=== PATIENT | female | born 1945 ===

== ENCOUNTER 2020-04-30 12:07 | Outpatient (CLI) | payer MEDICARE ==
--- NOTE | 2020-04-30 13:21 | ULT ---
Exam: Bilateral renal ultrasound HISTORY: Stage IV kidney disease. Renal cyst. COMPARISON: None FINDINGS: Right kidney: There is renal cortical thinning. Limited evaluation for solid masses. Multiple anechoi c foci involving the right renal cortex. Largest lesion measures 1.6 x 1.5 x 1.5 cm and is located along the lower pole. Renal cyst is favored. No hydronephrosis. Right kidney measurements: 10.3 x 3.9 x 4.8 cm. Left kidney: There is renal cortical thinning. Limited evaluation for solid masses. Multiple anechoic foci in the upper pole the left kidney, compatible with cysts. Largest cyst measures 3.5 x 3.8 x 3.6 cm. No hydronephrosis Left kidney measurements 11.5 x 5.4 x 5.5 cm. Urinary bladder: Normal mucosa. IMPRESSION: 1. No hydronephrosis 2. Bilateral renal cortical thinning 3. Bilateral renal cortical cysts.
== END 2020-04-30 12:08 | disposition home or self-care (01) ==
LOC: BICULT 12:07
PROVIDERS: ATTEND Internal Medicine
DX: N18.4 Chronic kidney disease, stage 4 (severe) (principal); N28.1 Cyst of kidney, acquired; N28.89 Other specified disorders of kidney and ureter
CPT/HCPCS: 76770